=== PATIENT | male | born 1985 | race Caucasian/White ===

== ENCOUNTER → 2021-07-13 | Outpatient (CLI) | payer SELFPAY ==
[~2021-07-13] MED LIST: ACYCLOVIR400 MG PO; ATENOLOL; ATENOLOL50 MG PO; LACRI-LUBE1 OI1 OP; LEVO T PO; LEVOXYL0.025 MG PO; PREDNISONE20 MG PO; SYNTHROID 0.0.025 MG PO
== END ==
LOC: COL.VAS 12:45
DX: I08.2 Rheumatic disorders of both aortic and tricuspid valves (principal); Z82.79 Family history of other congenital malformations, deformations and chromosomal abnormalities

== ENCOUNTER → 2021-08-05 | Outpatient (CLI) | payer SELFPAY | LOC: COL.RAD 07:30 | DX: R93.1 Abnormal findings on diagnostic imaging of heart and coronary circulation (principal) | CPT/HCPCS: Q9967 ==